=== PATIENT | male | born 1945 | race Caucasian/White ===

== ENCOUNTER 2019-10-19 09:16 | Emergency (ER) | payer OTHER ==
[~2019-10-19] VITALS: Ht 170.2 cm; Wt 83.9 kg
[~2019-10-19 09:16] MED LIST: ASPIR 8181 MG PO; CRESTOR20 MG PO; HYDREA500 M1 PO; PERCOCET 5/3251 TAB PO; RECTICARE30 GM TP; VASOTEC5 MG PO
[2019-10-19] MEDS ORDERED: SIMVASTATIN20 MG PO (09:33)
[2019-10-19] MEDS ORDERED: TAMSULOSIN HCL0.4 MG PO (09:34)
[2019-10-19] MEDS ORDERED: MELATONIN10 MG PO (09:35)
[2019-10-19] MEDS ORDERED: CIPRO500 MG PO (15:24)
[2019-10-19] MEDS ORDERED: TAMS0.4C PO (15:24)
[2019-10-19] MEDS ORDERED: KETO10TA2 PO (15:24)
== END 2019-10-19 15:37 | disposition home or self-care (01) ==
LOC: ER 09:16
DX: K57.30 Diverticulosis of large intestine without perforation or abscess without bleeding (principal); N20.1 Calculus of ureter; K80.80 Other cholelithiasis without obstruction